=== PATIENT | female | born 1990 | race Caucasian/White ===

== ENCOUNTER → 2016-06-23 | Outpatient (CLI) | payer OTHER ==
[2016-06-23 10:57] LABS: CH 30.2; CHCM 34.5; HDW 2.64; HGB 11.3 gm/dL (11.4-16.0); MCH 29.3 pg (25.0-35.0); MCHC 33.2 g/dL (31.0-37.0); MCV 88.1 fL (80.0-100.0); Mean Platelet Volume 9.6; RBC 3.87 m/uL (3.80-5.40); RDW 12.9 % (11.5-15.5); WBC 7.4 k/uL (3.8-10.6)
--- NOTE | 2016-06-23 15:45 | US ---
EXAMINATION TYPE: US OB Call Back DATE OF EXAM: 06/23/2016 3:36 PM COMPARISON: NONE CLINICAL HISTORY: US. GESTATIONAL AGE / DATING Dates by Initial Survey Scan: (24 weeks/4 days) EDC: 10/09/16 HEART RATE: 140 bpm RHYTHM: Normal ANATOMY SEEN (second anatomic survey look): RVOT IMPRESSION: OB callback for RVOT, appears wnl as visualized
== END | disposition home or self-care (01) ==
LOC: RADUSWWP 08:49
PROVIDERS: ATTEND Obstetrics & Gynecology
DX: Z36 Encounter for antenatal screening of mother (principal); Z34.82 Encounter for supervision of other normal pregnancy, second trimester; Z3A.24 24 weeks gestation of pregnancy
CPT/HCPCS: 82950; 85027

== ENCOUNTER → 2016-08-11 | Outpatient (CLI) | payer OTHER ==
--- NOTE | 2016-08-11 11:47 | US ---
EXAMINATION TYPE: US OB anatomy transabd DATE OF EXAM: 08/11/2016 11:32 AM COMPARISON: In pacs HISTORY: Large for dates, 2, para 1 TECHNIQUE: Transabdominal (TA) EXAM MEASUREMENTS: GESTATIONAL AGE / DATING Physician Established: (32 weeks/6 days) EDC: 09/30/2016 Dates by LMP: (32 weeks/2 days) EDC: 10/04/2016 Dates by First Scan: (32 weeks/0 days) EDC: 10/06/2016 Dates by Current Scan for: (31 weeks/3 days) EDC: 10/10/2016 SURVEY IUP: Single PLACENTA: Anterior PREVIA: No previa PEDRO PABLO: 16.2 cm Normal CERVICAL LENGTH (transabdominal: norm > 3.0cm): 4.3 cm BIOMETRY PRESENTATION: Vertex BPD: 8.0 cm 32 weeks / 0 days HC: 28.9 cm 31 weeks / 6 days AC: 28.7 cm 32 weeks / 5 days FL: 6.0 cm 31 weeks / 2 days ESTIMATED WEIGHT IN GRAMS: 1904 grams ESTIMATED WEIGHT IN LBS/OZS: 4 lbs. 3 oz. WEIGHT PERCENTAGE BASED ON ESTABLISHED DATE: 20 % HC/AC: 1.01 Normal FL/AC: 20.95 Normal HEART RATE: 131 bpm RHYTHM: Normal ANATOMY SEEN (within normal limits): Four Chamber Heart Outflow tracts: LVOT Stomach Situs Nose / Lips Diaphragm Kidneys (bilateral) Bladder Cord Insert Three Vessel Cord Longitudinal Spine Transverse Spine ANATOMY NOT SEEN: Due to advanced age, 3rd trimester * Lateral Vent (< 1 cm) cm * Cisterna Magna (< 1.1 cm) cm * Nuchal Fold (< 0.6 cm) cm * Cerebellum (varies with age) cm Choroid Plexus (bilateral) Midline Falx Cavus Septi Pellucidi Outflow Tracts: RVOT Arms (bilateral) Legs (bilateral) IMPRESSION: Viable single IUP measuring 31 weeks 3 days with a heart rate of 131bpm and an estimated delivery date of 10/10/2016.
== END | disposition home or self-care (01) ==
LOC: RADUSWWP 11:00
PROVIDERS: ATTEND Obstetrics & Gynecology
DX: O36.63X0 Maternal care for excessive fetal growth, third trimester, not applicable or unspecified (principal); Z3A.31 31 weeks gestation of pregnancy
CPT/HCPCS: 76811

== ENCOUNTER 2016-10-04 06:13 | Inpatient (IN) | payer OTHER ==
[2016-10-04 06:35] VITALS: RESP 16
[2016-10-04] MEDS ORDERED: OXYTOCIN 10 UNIT/ML 1 ML VIAL IM PRN (06:53)
[2016-10-04] MEDS ORDERED: LIDOCAINE 1% (PF) 10 MG/ML (30 ML SDV) SQ PRN (06:53)
[2016-10-04] MEDS ORDERED: METHYLERGONOVINE 0.2 MG/ML 1 ML AMP IM PRN (06:53)
[2016-10-04] MEDS ORDERED: CARBOPROST TROMETHAMINE 250 MCG/ML 1 ML AMP IM PRN (06:53)
[2016-10-04] MEDS ORDERED: AMPICILLIN 2,000 MG in SODIUM CHLORIDE 0.9% 100 ML IVPB STA (06:53)
[2016-10-04] MEDS ORDERED: TERBUTALINE 1 MG/ML VIAL SQ PRN (06:53)
[2016-10-04] MEDS: LACTATED RINGERS 1,000 ML IV SCH ×2 (06:58→08:54)
[2016-10-04] MEDS ORDERED: OXYTOCIN 30 UNITS/500 ML NS 30 UNIT in SALINE 1 500ML.BAG IV SCH (07:00)
[2016-10-04 07:18] LABS: Basophils % (A) 0 %; CH 29.9; CHCM 35.3; Eosinophils # (A) 0.2 k/uL (0-0.7); Eosinophils % (A) 1 %; HCT 38.1 % (34.0-46.0); HDW 2.66; HGB 13.2 gm/dL (11.4-16.0); Large Platelets Flag Moderate; Luc # (Auto) 0.37; Luc % (Auto) 3; Lymphocytes # (A) 2.2 k/uL (1.0-4.8); Lymphocytes % (A) 19 %; MCH 29.5 pg (25.0-35.0); MCHC 34.7 g/dL (31.0-37.0); MCV 84.9 fL (80.0-100.0); Mean Platelet Volume 10.8; Monocytes # (A) 0.6 k/uL (0-1.0); Monocytes % (A) 5 %; Neutrophils # (A) 8.4 k/uL (1.3-7.7); Neutrophils % (A) 72 %; RBC 4.49 m/uL (3.80-5.40); RDW 13.3 % (11.5-15.5); WBC 11.7 k/uL (3.8-10.6); WBC (Perox) 12.25
[2016-10-04] MEDS ORDERED: SODIUM CHLORIDE 0.9% 100 ML BAG ONE (07:56)
[2016-10-04] MEDS ORDERED: fentaNYL (PF) 50 MCG/ML 5 ML AMP ONE (07:56)
[2016-10-04] MEDS ORDERED: BUPIVACAINE (PF) 0.25% 30 ML VIAL ONE (07:56)
[2016-10-04 08:24] VITALS: BMI 31.6
[2016-10-04] MEDS ORDERED: BUPIVACAINE (PF) 0.25% 25 ML, fentaNYL (PF) 200 MCG in SODIUM CHLORIDE 0.9% 71 ML EPIDURAL ONE (08:39)
[2016-10-04] MEDS: AMPICILLIN 1,000 MG in SODIUM CHLORIDE 0.9% 50 ML IVPB SCH ×2 (11:57→16:10)
[2016-10-04] MEDS ORDERED: diphenhydrAMINE 25 MG CAP PO PRN (15:21)
[2016-10-04] MEDS ORDERED: BENZOCAINE/MENTHOL SPRAY 1 GM/SPRAY AEROSOL TOPICAL PRN (15:21)
[2016-10-04] MEDS ORDERED: diphenhydrAMINE 50 MG/ML 1 ML VIAL IVP PRN ×2 (15:21)
[2016-10-04] MEDS ORDERED: IBUPROFEN 600 MG TAB PO PRN (15:21)
[2016-10-04] MEDS ORDERED: ACETAMINOPHEN TAB 325 MG TAB PO PRN (15:21)
[2016-10-04] MEDS ORDERED: diphenhydrAMINE 50 MG CAP PO PRN (15:21)
[2016-10-04] MEDS ORDERED: Acetaminophen-Codeine 300-30mg TAB PO PRN ×2 (15:21)
[2016-10-04] MEDS ORDERED: SIMETHICONE 80 MG CHEWABLE PO PRN (15:21)
[2016-10-04] MEDS ORDERED: HYDROCORTISONE 2.5% RECTAL CREAM 30 GM TUBE RECTAL PRN (15:21)
[2016-10-04] MEDS ORDERED: WITCH HAZEL 1 EACH MED..PAD TOPICAL PRN (15:21)
[2016-10-04] MEDS ORDERED: LANOLIN CREAM 5 GM TUBE TOPICAL PRN (15:21)
[2016-10-04] MEDS ORDERED: ZOLPIDEM 5 MG TAB PO PRN (15:21)
--- NOTE | 2016-10-04 15:23 | P.HPOB ---
History of Present Illness H&P Date: 10/04/16 Chief Complaint: IUP term: SROM Patient is a 25-year-old at 40 weeks gestation arrives complaining of spontaneous rupture membranes. Patient reports that she had rupture membranes at approximately 5:30 this morning. Clear fluid is noted. History of groupie strep positive and therefore groupie strep prophylaxis has been initiated. Her course otherwise has been unremarkable. She is feeling well at this time. She was dilated to 37 years when I evaluated her heart tones 140s and reactive. Vital signs are stable and afebrile. Heart regular, lungs clear , extremities without pain. Abdomen is otherwise soft and nontender. Gravid uterus is noted. Assessment intrauterine at term. Plan expect spontaneous vaginal delivery. Plan is for epidural for pain control. Pertinent labs do include A+ blood type Rh generally was negative rubella was immune hepatitis B surface antigen and RPR were both negative. 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 Past Anesthesia/Blood Transfusion Reactions: No Reported Reaction Past Psychological History: No Psychological Hx Reported Smoking Status: Former smoker Past Alcohol Use History: Occasional Past Drug Use History: None Reported - Past Family History Father Family Medical History: Diabetes Mellitus Medications and Allergies Home Medications Medication Instructions Recorded Confirmed Type No Known Home Medications [No 02/13/16 10/04/16 History Known Home Medications] Allergies Allergy/AdvReac Type Severity Reaction Status Date / Time venom-honey bee Allergy Swelling Verified 02/13/16 19:54 [bee venom (honey bee)] Exam Osteopathic Statement: *. No significant issues noted on an osteopathic structural exam other than those noted in the History and Physical/Consult. - Vital Signs Vital signs: Vital Signs Temp Pulse Resp BP Pulse Ox 10/04/16 08:19 88 16 131/88 10/04/16 06:27 97.6 F 81 16 127/88 98 Intake and Output 10/04/16 10/04/16 10/04/16 06:59 14:59 22:59 Other: # Voids 1 Weight 78.471 kg 78.471 kg Patient Weight 10/05/16 06:59 Weight 78.471 kg Results Result Diagrams: 10/04/16 06:56 Abnormal Lab Results - Last 24 Hours (Table) 10/04/16 Range/Units 06:56 WBC 11.7 H (3.8-10.6) k/uL Neutrophils # 8.4 H (1.3-7.7) k/uL
--- NOTE | 2016-10-04 15:26 | P.PROBDLV ---
Vaginal Delivery Note - . Vaginal Delivery Note: Patient progressed complete and pushed with spontaneous vaginal delivery of a viable female over an intact perineum. Falling deliver the head was noted and retraction of the head onto the perineum indicating likely shoulder dystocia. Patient was immediately placed in steep Nahed position and the head of the bed was lowered. Head was noted to be left occiput anterior position. Despite Nahed position anterior shoulder would not release from behind the pubic bone. At this point I did reach to the posterior shoulder and was able to grasp onto the axilla using a counterclockwise motion and with nursing doing suprapubic pressure at an angle towards the patient's right side. We were able to clear the anterior shoulder without difficulty in less than 20 seconds. Once anterior shoulder was cleared baby was delivered fully without difficulty mouth nares were bulb suctioned and baby was placed on mother 's abdomen where the umbilical cord was clamped cut usual fashion an spontaneous cry is noted. scores and weight are both pending at this time but both mother and baby appear stable and baby is moving all extremities without difficulty. Placenta was delivered intact without difficulty and Pitocin was also added to the IV.
[2016-10-04 18:00] VITALS: BP 145/84; PULSE 105; TEMP 98.1
[2016-10-04] MEDS ORDERED: SENNOSIDES-DOCUSATE SODIUM 1 EACH TAB PO SCH (20:00)
--- NOTE | 2016-10-19 09:31 | P.DS ---
Providers Date of admission: 10/04/16 06:40 Expected date of discharge: 10/04/16 Attending physician: Ej Arboleda [facility] Course: Patient's baby encountered a on known cardiac anomaly. Baby was therefore transferred to [facility] for further evaluation and Aracely was discharged the same day due to same. At the time discharge she was stable. Her vital signs were stable and she was afebrile. Her heart was regular her lungs were clear and her abdomen was soft. Lochia had been reported to be light at that point. She will follow up with me in 6 weeks. All questions were answered for her prior to discharge but again this was an emergency discharge due to baby being transferred to [facility]. Patient Condition at Discharge: Good Plan - Discharge Summary New Discharge Prescriptions: Acetaminophen-Codeine 300-30mg [Tylenol #3] 1 tab PO Q4H PRN #30 tablet PRN Reason: Pain Ibuprofen [Motrin] 600 mg PO Q6HR PRN #30 tab PRN Reason: Pain Discharge Medication List Acetaminophen-Codeine 300-30mg [Tylenol #3] 1 tab PO Q4H PRN #30 tablet [Rx] Ibuprofen [Motrin] 600 mg PO Q6HR PRN #30 tab 10/04/16 [Rx] Follow up Appointment(s)/Referral(s): Ej Arboleda DO [Doctor of Osteopathic Medicine] - 6 Weeks Activity/Diet/Wound Care/Special Instructions: Heavy lifting, limit stairs and driving, and Ellik rest. If any high temperatures, heavy bleeding, or severe pain call my office Discharge Disposition: HOME SELF-CARE
== END 2016-10-04 19:57 | disposition home or self-care (01) | DRG 775 ==
LOC: FBPOP 06:13 → 4FBP 06:40
PROVIDERS: ADMIT Obstetrics & Gynecology; ATTEND Obstetrics & Gynecology
PROC: 10E0XZZ Delivery of Products of Conception, External Approach (ICD-10-PCS; principal; 2016-10-04)
PROC: 3E0S3NZ Introduction of Analgesics, Hypnotics, Sedatives into Epidural Space, Percutaneous Approach (ICD-10-PCS; 2016-10-04)
DX: O66.0 Obstructed labor due to shoulder dystocia (principal); O99.824 Streptococcus B carrier state complicating childbirth; Z3A.40 40 weeks gestation of pregnancy; Z37.0 Single live birth; Z87.891 Personal history of nicotine dependence; Z83.3 Family history of diabetes mellitus; Z91.030 Bee allergy status
CPT/HCPCS: 59025; 84112; 85025; 88307; 99213

== ENCOUNTER 2018-01-02 07:35 | Emergency (ER) | payer OTHER ==
[2018-01-02 07:38] VITALS: BP 138/94; PULSE 75; RESP 20; TEMP 98
--- NOTE | 2018-01-02 08:07 | ED ---
General Adult HPI - General Chief complaint: Dental/Oral Stated complaint: Dental Pain Time Seen by Provider: 01/02/18 07:35 Source: patient, RN notes reviewed Mode of arrival: ambulatory Limitations: no limitations - History of Present Illness Initial comments: This is a 27-year-old female presents emergency Department complaining of right upper molar pain. Patient states his been ongoing for 2 weeks. Patient states she can see a hole in the tooth but has not been able to get to a dentist. Patient states the pain is gotten progressively worse. Patient denies any swelling or drainage. Patient denies any fever. Patient denies any other symptoms at this time. - Related Data Previous Rx's Medication Instructions Recorded Acetaminophen-Codeine 300-30mg 1 tab PO Q4H PRN #30 tablet 10/04/16 [Tylenol #3] Ibuprofen [Motrin] 600 mg PO Q6HR PRN #30 tab 10/04/16 Amoxicillin 500 mg PO Q8H #30 capsule 01/02/18 Ibuprofen [Motrin] 600 mg PO Q6HR PRN #20 tab 01/02/18 Allergies Allergy/AdvReac Type Severity Reaction Status Date / Time venom-honey bee Allergy Swelling Verified 01/02/18 07:38 [bee venom (honey bee)] Review of Systems ROS Statement: Those systems with pertinent positive or pertinent negative responses have been documented in the HPI. ROS Other: All systems not noted in ROS Statement are negative. 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 Patient is in mild distress. EYES Patient's pupils are equal and round. Extraocular motion is intact MOUTH Patient's right upper molar has a cavity and is somewhat tender to palpation. There is no fluctuance around the tooth there is no redness of the gum. There is no swelling of the face. SKIN Unremarkable NEURO The patient is alert and oriented 3 PYSCH Patient has normal interpersonal interactions. MUSCULOSKELETAL All 4 times and full range of motion Limitations: no limitations Course Vital Signs 01/02/18 07:36 Temperature 98.0 F Pulse Rate 75 Respiratory 20 Rate Blood Pressure 138/94 O2 Sat by Pulse 100 Oximetry Disposition Clinical Impression: Dental caries, Toothache Disposition: HOME SELF-CARE Condition: Good Instructions: Dental Caries (ED), Toothache (ED) Prescriptions: Amoxicillin 500 mg PO Q8H #30 capsule Ibuprofen [Motrin] 600 mg PO Q6HR PRN #20 tab PRN Reason: For pain Is patient prescribed a controlled substance at d/c from ED?: No Referrals: None,Stated [Primary Care Provider] - 1-2 days Time of Disposition: 08:06
== END 2018-01-02 08:10 | disposition home or self-care (01) ==
LOC: EC 07:35
DX: K02.9 Dental caries, unspecified (principal); F17.200 Nicotine dependence, unspecified, uncomplicated; Z91.030 Bee allergy status
CPT/HCPCS: 99282

== ENCOUNTER 2018-04-11 17:14 | Emergency (ER) | payer OTHER ==
[2018-04-11 17:18] VITALS: BP 121/79; PULSE 94; RESP 18; TEMP 98.4
--- NOTE | 2018-04-11 20:07 | ED ---
General Adult HPI - General Chief complaint: ENT Stated complaint: throat pain Time Seen by Provider: 04/11/18 17:25 Source: patient, RN notes reviewed Mode of arrival: ambulatory Limitations: no limitations - History of Present Illness Initial comments: 27-year-old female presents to the emergency department for a chief complaint of sore throat 2 days. Patient states it is painful to swallow but denies any difficulty swallowing solids or liquids. Patient denies fevers or chills. Patient denies cough or congestion. She denies any stiff neck. Patient has no other complaints at this time including shortness of breath, chest pain, abdominal pain, nausea or vomiting, headache, or visual changes. - Related Data Previous Rx's Medication Instructions Recorded Acetaminophen-Codeine 300-30mg 1 tab PO Q4H PRN #30 tablet 10/04/16 [Tylenol #3] Ibuprofen [Motrin] 600 mg PO Q6HR PRN #30 tab 10/04/16 Amoxicillin 500 mg PO Q8H #30 capsule 01/02/18 Ibuprofen [Motrin] 600 mg PO Q6HR PRN #20 tab 01/02/18 Allergies Allergy/AdvReac Type Severity Reaction Status Date / Time venom-honey bee Allergy Swelling Verified 04/11/18 17:18 [bee venom (honey bee)] Review of Systems ROS Statement: Those systems with pertinent positive or pertinent negative responses have been documented in the HPI. ROS Other: All systems not noted in ROS Statement are negative. 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 Absent: scleral icterus, conjunctival injection, periorbital swelling ENT exam: Present: mucous membranes moist, TM's normal bilaterally, normal external ear exam. Absent: normal oropharynx (Patient has tonsillar exudates bilaterally. Uvula is midline. No evidence of peritonsillar abscess.) Neck exam: Present: normal inspection, full ROM. Absent: tenderness, meningismus, lymphadenopathy Respiratory exam: Present: normal lung sounds bilaterally. Absent: respiratory distress, wheezes, rales, rhonchi, stridor Cardiovascular Exam: Present: regular rate, normal rhythm, normal heart sounds. Absent: systolic murmur, diastolic murmur, rubs, gallop, clicks GI/Abdominal exam: Present: soft, normal bowel sounds. Absent: distended, tenderness (No left upper quadrant tenderness), guarding, rebound, rigid Neurological exam: Present: alert, oriented X3, CN II-XII intact Psychiatric exam: Present: normal affect, normal mood Course Vital Signs 04/11/18 17:16 Temperature 98.4 F Pulse Rate 94 Respiratory 18 Rate Blood Pressure 121/79 O2 Sat by Pulse 100 Oximetry Medical Decision Making - Medical Decision Making 27 year old female presents to the emergency department for a chief of sore throat 2 days. Patient denies fevers or chills, difficult to swallowing, stiff neck. On exam patient does have mild tonsillar exudates noted bilaterally. Uvula is midline. No evidence of peritonsillar abscess. Strep was initially negative. I discussed this with patient and did offer to do a test for mono. Patient states that she would like to have this done and was informed it would be another hour. All strep, heterophile, and flu were negative. I did discuss with patient following up for culture results in 2 days. Discussed following up with primary care and returning if she has any worsening symptoms. - Lab Data Lab Results 04/11/18 04/11/18 04/11/18 Range/Units 17:35 18:48 18:48 Heterophile Antibody Negative (Negative) Influenza Type A RNA Not Detected (Not Detectd) Influenza Type B (PCR) Not Detected (Not Detectd) Group A Strep Rapid Negative (Negative) Disposition Clinical Impression: Sore throat Disposition: HOME SELF-CARE Condition: Good Instructions: Strep Throat (ED) Additional Instructions: Please take Motrin and Tylenol for pain. Please follow-up with culture results in 2 days. Follow-up with primary care in 1-2 days. Return to the emergency department if you have any worsening symptoms. Is patient prescribed a controlled substance at d/c from ED?: No Referrals: Sneha Slade MD [STAFF PHYSICIAN] - 1-2 days Time of Disposition: 20:07
== END 2018-04-11 20:12 | disposition home or self-care (01) ==
LOC: EC 17:14
DX: J02.9 Acute pharyngitis, unspecified (principal); F17.200 Nicotine dependence, unspecified, uncomplicated; Z91.030 Bee allergy status
CPT/HCPCS: 36415; 86308; 87081; 87430; 87502; 99283

== ENCOUNTER 2018-05-13 18:11 | Emergency (ER) | payer OTHER ==
--- NOTE | 2018-05-13 18:38 | ED ---
General Adult HPI - General Chief complaint: Vaginal Bleeding Stated complaint: early /spotting Source: patient Mode of arrival: ambulatory Limitations: no limitations - History of Present Illness Initial comments: Dictation was produced using [employer] dictation software. please excuse any grammatical, word or spelling errors. Chief Complaint: 27-year-old female presents with vaginal bleeding. History of Present Illness: 27-year-old female with no significant past medical history presents with vaginal spotting. Patient was at work today when she noted some spotting. Patient's last measured. Last menstrual was approximately 6 weeks ago. Patient is was confirmed by 2 positive urine test and missed period. Patient has a follow-up with [facility]. She is not on vitamins. Patient denies any pelvic pain. The ROS documented in this emergency department record has been reviewed and confirmed by me. Those systems with pertinent positive or negative responses have been documented in the HPI. All other systems are other negative and/or noncontributory. - Related Data Previous Rx's Medication Instructions Recorded Cephalexin [Keflex] 500 mg PO Q6HR 5 Days #20 cap 05/13/18 Pnv No.95/Ferrous Fum/Folic AC 1 each PO QAM #60 tablet 05/13/18 [ Multivitamin Tablet] Allergies Allergy/AdvReac Type Severity Reaction Status Date / Time venom-honey bee Allergy Swelling Verified 05/13/18 18:29 [bee venom (honey bee)] Review of Systems ROS Statement: Those systems with pertinent positive or pertinent negative responses have been documented in the HPI. ROS Other: All systems not noted in ROS Statement are negative. 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 Cardiovascular: Heart regular rate and rhythm, S1&S2 audible, no murmurs, rubs or gallops Chest: Lungs clear to auscultation bilaterally, no rhonchi, no wheeze, no rales Abdomen: Bowel sounds present, abdomen soft, non-tender, non-distended, no organomegaly Musculoskeletal: Pulses present and equal in all extremities, no peripheral edema Motor: Power 5/5 bilaterally, no focal deficits noted Neurological: CN II-XII grossly intact, no focal motor or sensory deficits noted Skin: Intact with no visualized rashes Psych: Normal affect and mood Limitations: no limitations Course Vital Signs 05/13/18 18:20 Temperature 97.9 F Pulse Rate 77 Respiratory 16 Rate Blood Pressure 119/83 O2 Sat by Pulse 100 Oximetry Medical Decision Making - Medical Decision Making ED course: 27-year-old female presents with vaginal bleeding and . Vital signs upon arrival are within acceptable limits.Abdomen evaluation obtained. Mild leukocytosis of 11.6, metabolic panel unremarkable. Analysis shows white blood cells. Beta Quant is 98,000. ultrasound shows intrauterine with gestational age of 6 weeks and 1 day. Patient has normal heart rate. Estimated date of delivery is 01/05/2019. Discussed with patient that I would recommend pelvic exam for the for evaluation. She refuses pelvic examination. Patient given referral to [facility]. Patient given prescriptions for Keflex for possible urinary tract infection. - Lab Data Result diagrams: 05/13/18 18:44 05/13/18 18:44 Lab Results 05/13/18 05/13/18 05/13/18 Range/Units 18:44 18:44 18:44 WBC 11.6 H (3.8-10.6) k/uL RBC 4.34 (3.80-5.40) m/uL Hgb 12.3 (11.4-16.0) gm/dL Hct 36.8 (34.0-46.0) % MCV 84.9 (80.0-100.0) fL MCH 28.3 (25.0-35.0) pg MCHC 33.3 (31.0-37.0) g/dL RDW 12.6 (11.5-15.5) % Plt Count 177 (150-450) k/uL Neutrophils % 72 % Lymphocytes % 19 % Monocytes % 5 % Eosinophils % 2 % Basophils % 0 % Neutrophils # 8.3 H (1.3-7.7) k/uL Lymphocytes # 2.2 (1.0-4.8) k/uL Monocytes # 0.6 (0-1.0) k/uL Eosinophils # 0.2 (0-0.7) k/uL Basophils # 0.0 (0-0.2) k/uL Sodium 136 L (137-145) mmol/L Potassium 4.1 (3.5-5.1) mmol/L Chloride 101 (98-107) mmol/L Carbon Dioxide 26 (22-30) mmol/L Anion Gap 9 mmol/L BUN 16 (7-17) mg/dL Creatinine 0.72 (0.52-1.04) mg/dL Est GFR (CKD-EPI)AfAm >90 (>60 ml/min/1.73 sqM) Est GFR (CKD-EPI)NonAf >90 (>60 ml/min/1.73 sqM) Glucose 97 (74-99) mg/dL Calcium 9.4 (8.4-10.2) mg/dL HCG, Quant 90159.7 mIU/mL Urine Color Urine Appearance (Clear) Urine pH (5.0-8.0) Ur Specific [place] (1.001-1.035) Urine Protein (Negative) Urine Glucose (UA) (Negative) Urine Ketones (Negative) Urine Blood (Negative) Urine Nitrite (Negative) Urine Bilirubin (Negative) Urine Urobilinogen (<2.0) mg/dL Ur Leukocyte Esterase (Negative) Urine RBC (0-5) /hpf Urine WBC (0-5) /hpf Ur Squamous Epith Cells (0-4) /hpf Urine Bacteria (None) /hpf Urine Mucus (None) /hpf Blood Type A Positive Blood Type Recheck No Antibody Screen NEGATIVE Spec Expiration Date 05/16/2018 - 234305/13/18 Range/Units 18:44 WBC (3.8-10.6) k/uL RBC (3.80-5.40) m/uL Hgb (11.4-16.0) gm/dL Hct (34.0-46.0) % MCV (80.0-100.0) fL MCH (25.0-35.0) pg MCHC (31.0-37.0) g/dL RDW (11.5-15.5) % Plt Count (150-450) k/uL Neutrophils % % Lymphocytes % % Monocytes % % Eosinophils % % Basophils % % Neutrophils # (1.3-7.7) k/uL Lymphocytes # (1.0-4.8) k/uL Monocytes # (0-1.0) k/uL Eosinophils # (0-0.7) k/uL Basophils # (0-0.2) k/uL Sodium (137-145) mmol/L Potassium (3.5-5.1) mmol/L Chloride (98-107) mmol/L Carbon Dioxide (22-30) mmol/L Anion Gap mmol/L BUN (7-17) mg/dL Creatinine (0.52-1.04) mg/dL Est GFR (CKD-EPI)AfAm (>60 ml/min/1.73 sqM) Est GFR (CKD-EPI)NonAf (>60 ml/min/1.73 sqM) Glucose (74-99) mg/dL Calcium (8.4-10.2) mg/dL HCG, Quant mIU/mL Urine Color Yellow Urine Appearance Cloudy H (Clear) Urine pH 7.0 (5.0-8.0) Ur Specific [place] 1.017 (1.001-1.035) Urine Protein Negative (Negative) Urine Glucose (UA) Negative (Negative) Urine Ketones Negative (Negative) Urine Blood Small H (Negative) Urine Nitrite Negative (Negative) Urine Bilirubin Negative (Negative) Urine Urobilinogen <2.0 (<2.0) mg/dL Ur Leukocyte Esterase Large H (Negative) Urine RBC 3 (0-5) /hpf Urine WBC 6 H (0-5) /hpf Ur Squamous Epith Cells 14 H (0-4) /hpf Urine Bacteria Rare H (None) /hpf Urine Mucus Rare H (None) /hpf Blood Type Blood Type Recheck Antibody Screen Spec Expiration Date Disposition Clinical Impression: Pelvic pain Disposition: HOME SELF-CARE Condition: Good Instructions: Pelvic Pain in Women (ED) Prescriptions: Cephalexin [Keflex] 500 mg PO Q6HR 5 Days #20 cap Pnv No.95/Ferrous Fum/Folic AC [ Multivitamin Tablet] 1 each PO QAM #60 tablet Is patient prescribed a controlled substance at d/c from ED?: No Referrals: None,Stated [Primary Care Provider] - 1-2 days Time of Disposition: 21:13
[2018-05-13 19:07] LABS: Basophils % (A) 0 %; Eosinophils # (A) 0.2 k/uL (0-0.7); Eosinophils % (A) 2 %; HCT 36.8 % (34.0-46.0); HGB 12.3 gm/dL (11.4-16.0); Lymphocytes # (A) 2.2 k/uL (1.0-4.8); Lymphocytes % (A) 19 %; MCH 28.3 pg (25.0-35.0); MCHC 33.3 g/dL (31.0-37.0); MCV 84.9 fL (80.0-100.0); Mean Platelet Volume 8.7; Monocytes # (A) 0.6 k/uL (0-1.0); Monocytes % (A) 5 %; Neutrophils # (A) 8.3 k/uL (1.3-7.7); Neutrophils % (A) 72 %; Platelet Count 177 k/uL (150-450); RBC 4.34 m/uL (3.80-5.40); RDW 12.6 % (11.5-15.5); WBC 11.6 k/uL (3.8-10.6)
[2018-05-13 19:13] LABS: Appearance,Urine Cloudy (Clear); Bacteria,Urine Rare /hpf; Bilirubin,Urine Negative (Negative); Blood,Urine Small (Negative); Color,Urine Yellow; Glucose,Urine (UA) Negative (Negative); Ketones,Urine Negative (Negative); Leukocyte Esterase,Urine Large (Negative); Mucus,Urine Rare /hpf; Nitrite,Urine Negative (Negative); Protein,Urine Negative (Negative); RBC,Urine 3 /hpf (0-5); Specific Gravity,Urine 1.017 (1.001-1.035); Squamous Epithelial Cell,Urine 14 /hpf (0-4); Urobilinogen,Urine <2.0 mg/dL (<2.0); WBC,Urine 6 /hpf (0-5)
[2018-05-13 19:17] LABS: Anion Gap 9 mmol/L; Blood Urea Nitrogen 16 mg/dL (7-17); Calcium 9.4 mg/dL (8.4-10.2); Carbon Dioxide 26 mmol/L (22-30); Chloride 101 mmol/L (98-107); Glucose 97 mg/dL (74-99); Potassium 4.1 mmol/L (3.5-5.1); Sodium 136 mmol/L (137-145)
--- NOTE | 2018-05-13 20:38 | US ---
EXAMINATION TYPE: Transabdominal DATE OF EXAM: 09/11/17 COMPARISON: NONE CLINICAL HISTORY: Pain. Cramping and spotting. EXAM PERFORMED: Transabdominal (TA) EXAM MEASUREMENTS: GESTATIONAL AGE / DATING Physician Established: Not yet established Dates by LMP: (6 weeks/4 days) EDC: 01/02/2019 Dates by First Scan: No previous this is first scan Dates by Current Scan for: ( 6 weeks/1 days) EDC: 01/05/2019 MATERNAL ANATOMY Uterus: 9.0 x 5.1 x 5.8 cm Right Ovary: 2.6 x 1.9 x 1.9 cm Left Ovary: 2.2 x 1.4 x 1.6 cm Post CDS / Adnexa: wnl Presence of free fluid: no Presence of corpus luteal cyst: no Presence of subchorionic bleed: no GESTATION / SURVEY CRL: 0.45cm (6 weeks/1 days) Yolk Sac (normal less than 6mm): 2mm Heart Rate: 157 bpm Rhythm: Normal IUP: Viable IUP Beta HcG (if available): Not available at this time IMPRESSION: The ultrasound gestational age is 6 weeks and 1 day. No complicating process seen. The MIGUEL is 01/06/20 19.
[2018-05-13 20:41] LABS: HCG,Quantitative Serum 98460.7 mIU/mL
[2018-05-13 21:33] VITALS: BP 123/79; PULSE 74; RESP 17; TEMP 98
== END 2018-05-13 21:24 | disposition home or self-care (01) ==
LOC: EC 18:11
DX: O99.89 Other specified diseases and conditions complicating pregnancy, childbirth and the puerperium (principal); R10.2 Pelvic and perineal pain; O99.111 Other diseases of the blood and blood-forming organs and certain disorders involving the immune mechanism complicating pregnancy, first trimester; D72.829 Elevated white blood cell count, unspecified; R82.998 Other abnormal findings in urine; O20.9 Hemorrhage in early pregnancy, unspecified; O99.331 Smoking (tobacco) complicating pregnancy, first trimester; F17.200 Nicotine dependence, unspecified, uncomplicated; Z91.030 Bee allergy status; Z3A.01 Less than 8 weeks gestation of pregnancy
CPT/HCPCS: 36415; 76801; 80048; 81001; 84702; 85025; 86850; 86900; 86901; 87086; 99284

== ENCOUNTER 2018-12-21 21:14 | Outpatient (CLI) | payer OTHER ==
[2018-12-21 22:18] VITALS: BP 125/86; PULSE 107; RESP 15; TEMP 97.4
[2018-12-21 23:01] LABS: Basophils # (A) 0.1 k/uL (0-0.2); Basophils % (A) 1 %; Eosinophils # (A) 0.1 k/uL (0-0.7); Eosinophils % (A) 1 %; HGB 11.4 gm/dL (11.4-16.0); Lymphocytes # (A) 1.6 k/uL (1.0-4.8); Lymphocytes % (A) 15 %; MCH 28.2 pg (25.0-35.0); MCHC 33.5 g/dL (31.0-37.0); Mean Platelet Volume 9.6; Monocytes # (A) 0.5 k/uL (0-1.0); Monocytes % (A) 5 %; Neutrophils # (A) 7.9 k/uL (1.3-7.7); Neutrophils % (A) 75 %; Platelet Count 154 k/uL (150-450); RBC 4.05 m/uL (3.80-5.40); RDW 14.1 % (11.5-15.5); WBC 10.5 k/uL (3.8-10.6)
[2018-12-21 23:04] LABS: ALT 162 U/L (9-52); AST 93 U/L (14-36); African American GFR (CKD) >90 (>60 ml/min/1.73 sqM); Anion Gap 9 mmol/L; Blood Urea Nitrogen 7 mg/dL (7-17); Carbon Dioxide 21 mmol/L (22-30); Chloride 107 mmol/L (98-107); Glucose 104 mg/dL (74-99); Potassium 3.5 mmol/L (3.5-5.1); Sodium 137 mmol/L (137-145)
--- NOTE | 2019-01-26 11:21 | P.MSEPDOC ---
Presenting Problems - Arrival Data Date of Arrival on Unit: 12/21/18 Time of Arrival on Unit: 21:14 Mode of Transport: Ambulatory - Complaint OB-Reason for Admission/Chief Complaint: Pain Comment: Pt complains of RUQ pain that started 2 days ago and has gotten worse. Rates it an 01/18 Medical History - Information : 3 Para: 2 Term: 2 : 0 Abortions: Spontaneous or Elective: 0 Number of Living Children: 2 - Gestational Age Gestational Age by MIGUEL (wks/days): 38 Weeks and 2 Days Review of Systems - Review of Systems Constitutional: No problems Breast: No problems ENT: No problems Cardiovascular: No problems Respiratory: No problems Gastrointestinal: No problems Genitourinary: No problems Musculoskeletal: No problems Neurological: No problems Skin: No problems Vital Signs - Temperature Temperature: 97.4 F Temperature Source: Temporal Artery Scan - Pulse Pulse Oximetery Pulse Rate: 107 Pulse Assessment Method: Pulse Oximetry - Respirations Respiratory Rate: 15 Oxygen Delivery Method: Room Air O2 Sat by Pulse Oximetry: 98 - Blood Pressure Right Arm Blood Pressure: 125/86 Blood Pressure Mean: 99 Blood Pressure Source: Automatic Cuff Medical Screen Scoring (Pre) - Cervical Exam Dilation: Exam Deferred Effacement: Exam Deferred Membranes: Intact - Uterine Contractions Frequency: > or = 36 weeks =2 Duration: N/A Intensity: N/A - Maternal Vital Signs Maternal Temperature: N/A Maternal Blood Pressure: N/A Signs of Preeclampsia: Epigastric Pain = 1 Maternal Respirations: N/A - Maternal Trauma Maternal Trauma: N/A - Assessment - Baby A Baseline FHR: 145 Heart Rate - NICHD Category: Category I (Normal) = 0 NST: Reactive Position: N/A - Total Score - Baby A Total Score - Baby A: 3 - Total Score - Baby B Total Score - Baby B: 3 - Total Score - Baby C Total Score - Baby C: 3 - Level of Risk - Baby A Level of Risk - Baby A: Low (0-5) - Level of Risk - Baby B Level of Risk - Baby B: Low (0-5) - Level of Risk - Baby C Level of Risk - Baby C: Low (0-5) - Pain Assessment Pain Location and Character: Right, Upper, Abdomen Pain Scale Used: Numeric (1 - 10) Pain Intensity: 8 Pain Management Goal: 2 Pain Description: *Acute, Stabbing Pain Radiation Location: none Pain Frequency: Constant Pain Duration: 2 Pain Duration Units: Days Pain Behavior: None Exhibited Pain Aggravating Factors: None Physician Notification (Pre) - Physician Notified Physician Notified Date: 12/21/18 Physician Notified Time: 21:50 Physician/Practitioner Notifed:: Dr Nagy New Order Received: Yes - Notification Comment Comment: Orders to obtain BMP, CBC, AST, ALT and call with results Medical Screen Scoring (Post) - Cervical Exam Dilation: 4-7 cm = 2 Membranes: Intact - Uterine Contractions Frequency: > 5 minutes apart = 1 Duration: N/A Intensity: N/A - Maternal Vital Signs Maternal Temperature: N/A Maternal Blood Pressure: N/A Signs of Preeclampsia: Epigastric Pain = 1 Maternal Respirations: N/A - Maternal Trauma Maternal Trauma: N/A - Assessment - Baby A Heart Rate: 135 Heart Rate - NICHD Category: Category I (Normal) = 0 NST: Reactive Position: N/A Station: N/A - Total Score Total Score - Baby A: 4 Total Score - Baby B: 4 Total Score - Baby C: 4 - Post Treatment Level of Risk Post Treatment Level of Risk - Baby A: Low (0-5) Post Treatment Level of Risk - Baby B: Low (0-5) Post Treatment Level of Risk - Baby C: Low (0-5) Disposition - Disposition OB Disposition: Discharge to home Discharge Date: 12/22/18 Discharge Time: 00:00 I agree with the RN Medical Screening Exam: No Risk & Benefit of care provided described in d/c instruction: No Diagnosis: PAIN, UNSPECIFIED
== END 2018-12-22 | disposition home or self-care (01) ==
LOC: FBPOP 21:14
PROVIDERS: ATTEND Obstetrics & Gynecology
DX: O99.89 Other specified diseases and conditions complicating pregnancy, childbirth and the puerperium (principal); R52 Pain, unspecified; Z3A.38 38 weeks gestation of pregnancy
CPT/HCPCS: 59025; 80048; 84450; 84460; 85025; 99215

== ENCOUNTER 2018-12-26 06:00 | Inpatient (IN) | payer OTHER ==
[2018-12-26] MEDS ORDERED: TERBUTALINE 1 MG/ML VIAL SQ PRN (06:25)
[2018-12-26] MEDS ORDERED: LIDOCAINE 0.5% (PF) 5 MG/ML (50 ML SDV) SQ PRN (06:25)
[2018-12-26] MEDS ORDERED: METHYLERGONOVINE 0.2 MG/ML 1 ML AMP IM PRN (06:25)
[2018-12-26] MEDS ORDERED: OXYTOCIN 10 UNIT/ML 1 ML VIAL IM PRN (06:25)
[2018-12-26] MEDS ORDERED: CARBOPROST TROMETHAMINE 250 MCG/ML 1 ML AMP IM PRN (06:25)
[2018-12-26] MEDS ORDERED: OXYTOCIN 30 UNITS/500 ML NS 30 UNIT in SALINE 1 500ML.BAG IV SCH (06:30)
[2018-12-26] MEDS: LACTATED RINGERS 1,000 ML IV SCH ×2 (06:34→07:59)
[2018-12-26 06:44] LABS: Basophils # (A) 0.1 k/uL (0-0.2); Basophils % (A) 1 %; Eosinophils # (A) 0.1 k/uL (0-0.7); Eosinophils % (A) 1 %; HCT 34.5 % (34.0-46.0); HGB 11.9 gm/dL (11.4-16.0); Lymphocytes # (A) 1.9 k/uL (1.0-4.8); Lymphocytes % (A) 20 %; MCHC 34.6 g/dL (31.0-37.0); Mean Platelet Volume 9.4; Monocytes # (A) 0.4 k/uL (0-1.0); Monocytes % (A) 4 %; Neutrophils # (A) 6.6 k/uL (1.3-7.7); Neutrophils % (A) 70 %; Platelet Count 180 k/uL (150-450); RBC 4.11 m/uL (3.80-5.40); RDW 14.2 % (11.5-15.5); WBC 9.4 k/uL (3.8-10.6)
[2018-12-26 07:11] VITALS: BMI 28.9
--- NOTE | 2018-12-26 07:39 | P.HPOB ---
History of Present Illness H&P Date: 12/26/18 Chief Complaint: Here for induction of labor with advanced cervical dilatation This is a 28-year-old white female 3 para 2002 EDC 01/02/2019 at 39 weeks gestation. Patient presents today for induction with advanced cervical dilatation, cervix was 6 cm yesterday in the office. Fetus is been active throughout the . She is admitting to mild irregular uterine contractions. She denies fluid leakage or vaginal bleeding. history is significant for mild cholestasis of . Blood type is A+, rubella status immune. Pap smear, gonorrhea and chlamydia cultures, VDRL testing, urine culture, hepatitis B surface antigen, HIV testing, group B strep cultures all negative. One-hour Glucola 126. Past medical history is significant for a bone tumor, benign origin. Past surgical history bone marrow donation, bone tumor removed. Current medications vitamins daily. ALLERGIES none known. Family history significant for diabetes as well as congenital heart defect. Obstetric history is significant for 2 prior vaginal deliveries, full-term, unremarkable. Social history patient is single, she is a former smoker. She denies alcohol or drug use. On exam this is a pleasant white female, 5 foot 2 inches, 158 pounds, vital signs are stable and she is afebrile. Admitting blood pressure 119/75. The general physical exam is within normal limits, however the skin does show evidence of scratching secondary to pruritus of cholestasis. Cervix is 7 cm dilated, 70% effaced, -2 station, vertex presentation, anterior, soft. Artifici al amniorrhexis reveals thin meconium-stained fluid. heart rate is consistent with reactive NST. Impression: 39 week intrauterine , advanced cervical dilatation, mild cholestasis of . Plan: Oxytocin per hospital protocol. Epidural has been requested at this time. Continue close maternal and surveillance. Anticipate normal spontaneous vaginal delivery. Review of Systems Constitutional: Reports as per HPI 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 Past Anesthesia/Blood Transfusion Reactions: No Reported Reaction Past Psychological History: No Psychological Hx Reported Smoking Status: Former smoker Past Alcohol Use History: Occasional Past Drug Use History: None Reported - Past Family History Father Family Medical History: Diabetes Mellitus Medications and Allergies Home Medications Medication Instructions Recorded Confirmed Type Pnv No.95/Ferrous Fum/Folic AC 1 each PO QAM #60 tablet 05/13/18 12/26/18 Rx [ Multivitamin Tablet] Allergies Allergy/AdvReac Type Severity Reaction Status Date / Time venom-honey bee Allergy Swelling Verified 12/21/18 21:23 [bee venom (honey bee)] Exam Intake and Output 12/25/18 12/26/18 12/26/18 22:59 06:59 14:59 Other: Weight 71.668 kg See dictation under HPI please Results Result Diagrams: 12/26/18 06:30 Assessment and Plan Assessment: 39 week intrauterine , advanced cervical dilatation, mild cholestasis o f . Thin meconium fluid. Plan: Oxytocin per hospital protocol. Close maternal and surveillance. Epidural has been requested at this time. Anticipate normal spontaneous vaginal delivery. Time with Patient: Less than 30
[2018-12-26] MEDS ORDERED: fentaNYL (PF) 50 MCG/ML 5 ML AMP ONE (09:50)
[2018-12-26] MEDS ORDERED: ROPIVACAINE 5MG/ML 20ML VIAL ONE (09:50)
[2018-12-26] MEDS ORDERED: SODIUM CHLORIDE 0.9% 100 ML BAG ONE (09:50)
--- NOTE | 2018-12-26 11:55 | P.PROBDLV ---
Vaginal Delivery Note - . Vaginal Delivery Note: This is a 28-year-old white female 3 para 2002 EDC 01/02/2019 at 39 weeks gestation. Patient presented this morning for induction with advanced cervical dilatation and history of cholestasis of . She was 6 cm dilated as checked in the office yesterday. Group B strep cultures are negative. Rubella status immune. Blood type A positive. Please see my dictated history and physical for details. On admission artificial amniorrhexis revealed thin meconium-stained fluid. Oxytocin was started and titrated per hospital protocol. Epidural was placed per her request. She became completely dilated at 1127 hours and began the second stage of labor at that time. Perineal body is prepped and draped in usual sterile fashion. With excellent maternal expulsive efforts the infant's head delivered occiput anterior and he restituted accordingly. There is no nuchal cord noted. The right or anterior shoulder was gently delivered from underneath the pubic symphysis at which time the oropharynx, nasopharynx, and external nares were all bulb suctioned on the perineal body. Patient was officially delivered of a liveborn male infant at 1139 hours. Umbilical cord was doubly clamped and ligated. He was handed to waiting nurses for evaluation where scores of 8 and 9 at one and 5 minutes respectively were given. weight 8 lbs. 7 oz. or 3820 g. Placenta delivered spontaneously, it was inspected and noted to be intact, meconium stain ed with trivascular cord, at 1143 hours. This time the perineal body was redraped. Inspection of cervix, vagina, perineum, periurethral, and perirectal areas revealed a very small first-degree laceration at 6:00 through the mucosa only this is repaired with 3-0 Vicryl in a single [id number] suture. Fundus is firm and in the midline, symmetric and 18 week size upon completion of delivery. Placenta is sent to pathology for history of meconium fluid and cholestasis. Patient is requesting circumcision for her son. The family is allowed to begin the bonding experience in the LDR.
[2018-12-26] MEDS ORDERED: diphenhydrAMINE 50 MG CAP PO PRN (11:56)
[2018-12-26] MEDS ORDERED: HYDROCORTISONE 2.5% RECTAL CREAM 30 GM TUBE RECTAL PRN (11:56)
[2018-12-26] MEDS ORDERED: ACETAMINOPHEN TAB 325 MG TAB PO PRN (11:56)
[2018-12-26] MEDS ORDERED: SIMETHICONE 80 MG CHEWABLE PO PRN (11:56)
[2018-12-26] MEDS ORDERED: diphenhydrAMINE 50 MG/ML 1 ML VIAL IVP PRN ×2 (11:56)
[2018-12-26] MEDS ORDERED: ZOLPIDEM 5 MG TAB PO PRN (11:56)
[2018-12-26] MEDS ORDERED: LANOLIN CREAM 5 GM TUBE TOPICAL PRN (11:56)
[2018-12-26] MEDS ORDERED: WITCH HAZEL 1 EACH MED..PAD TOPICAL PRN (11:56)
[2018-12-26] MEDS ORDERED: diphenhydrAMINE ELIXIR 25 MG/10 ML CUP PO PRN (11:56)
[2018-12-26] MEDS ORDERED: diphenhydrAMINE 25 MG CAP PO PRN (11:56)
[2018-12-26] MEDS ORDERED: BENZOCAINE/MENTHOL SPRAY 1 GM/SPRAY AEROSOL TOPICAL PRN (11:56)
[2018-12-26] MEDS ORDERED: OXYTOCIN 20 UNITS/1000 ML NS 1,000 ML IV SCH (12:00)
[2018-12-26] MEDS: IBUPROFEN 600 MG TAB PO PRN (19:51)
[2018-12-26] MEDS: SENNOSIDES-DOCUSATE SODIUM 1 EACH TAB PO SCH (20:08)
[2018-12-27 08:09] VITALS: BP 114/85; PULSE 79; RESP 17; TEMP 98.3
[2018-12-27] MEDS: SENNOSIDES-DOCUSATE SODIUM 1 EACH TAB PO SCH (08:11)
--- NOTE | 2018-12-27 08:49 | P.DS ---
Providers Date of admission: 12/26/18 06:06 Expected date of discharge: 12/27/18 Attending physician: Tamiko Harrington Primary care physician: Stated None Hospital Course: This is a 28-year-old white female 3 para 2002 EDC 01/02/2019 at 39 weeks gestation. Patient presented for induction for cholestasis of and advanced cervical dilatation. was otherwise unremarkable, group B strep cultures negative, blood type A+, rubella status immune. Please see dictated history and physical for details. Oxytocin was started and epidural was placed per her request. She went on to swiftly deliver a liveborn male with scores of 8 and 9 at one and 5 minutes respectively. He weighed 8 lbs. 7 oz. or 3820 g. There was a small first-degree perineal laceration easily repaired and an estimated blood loss recorded of 250 mL's. Please see dictated delivery note for details. This morning the patient is doing well. She is voiding, ambulating and passing flatus without difficulty. Vital signs are stable and she is afebrile. Fundus is firm and in the midline, symmetric, 18 week size. Extremities are negative for edema. The patient's pruritus has greatly improved after delivery. circumcision has been performed. Patient is judged to be in very good condition for discharge home. She will use [id number] Advil or Aleve, or ibuprofen as needed for pain. She will continue taking her vitamin daily. I've asked her to call with any fevers shakes or chills, foul smelling or copious lochia, with the passage of large blood clots, with any pain not alleviated by [id number] products, or indeed with any concerns. We have reviewed options for contraception and we'll discuss this further in the office.+ Patient Condition at Discharge: Good Plan - Discharge Summary Discharge Rx Participant: No New Discharge Prescriptions: No Action Pnv No.95/Ferrous Fum/Folic AC [ Multivitamin Tablet] 1 each PO QAM #60 tablet Discharge Medication List Pnv No.95/Ferrous Fum/Folic AC [ Multivitamin Tablet] 1 each PO QAM #60 tablet 05/13/18 [Rx] Follow up Appointment(s)/Referral(s): Tamiko Harrington MD [STAFF PHYSICIAN] - 6 Weeks Discharge Disposition: HOME SELF-CARE
[2018-12-27] MEDS: IBUPROFEN 600 MG TAB PO PRN (10:21)
== END 2018-12-27 13:00 | disposition home or self-care (01) | DRG 805 ==
LOC: 4FBP 06:06
PROVIDERS: ADMIT Obstetrics & Gynecology; ATTEND Obstetrics & Gynecology
PROC: 10E0XZZ Delivery of Products of Conception, External Approach (ICD-10-PCS; principal; 2018-12-26)
PROC: 0HQ9XZZ Repair Perineum Skin, External Approach (ICD-10-PCS; 2018-12-26)
PROC: 10907ZC Drainage of Amniotic Fluid, Therapeutic from Products of Conception, Via Natural or Artificial Opening (ICD-10-PCS; 2018-12-26)
PROC: 3E033VJ Introduction of Other Hormone into Peripheral Vein, Percutaneous Approach (ICD-10-PCS; 2018-12-26)
PROC: 00HU33Z Insertion of Infusion Device into Spinal Canal, Percutaneous Approach (ICD-10-PCS; 2018-12-26)
PROC: 3E0R3BZ Introduction of Anesthetic Agent into Spinal Canal, Percutaneous Approach (ICD-10-PCS; 2018-12-26)
DX: O26.62 Liver and biliary tract disorders in childbirth (principal); K83.1 Obstruction of bile duct; Z37.0 Single live birth; O70.0 First degree perineal laceration during delivery; O77.0 Labor and delivery complicated by meconium in amniotic fluid; Z3A.39 39 weeks gestation of pregnancy; Z87.891 Personal history of nicotine dependence; Z83.3 Family history of diabetes mellitus; Z82.49 Family history of ischemic heart disease and other diseases of the circulatory system; Z91.030 Bee allergy status
CPT/HCPCS: 85025; 86850; 86900; 86901; 88307

== ENCOUNTER 2020-02-27 14:00 | Emergency (ER) | payer OTHER ==
[2020-02-27 14:03] VITALS: TEMP 98.6
[2020-02-27] MEDS ORDERED: ARTIFICIAL TEARS-HYPROMELLOSE DROPS 15 ML BTL LEFT EYE STA (14:18)
--- NOTE | 2020-02-27 14:21 | ED ---
General Adult HPI - General Chief complaint: Neuro Symptoms/Deficit Stated complaint: L Side Face Numbness Time Seen by Provider: 02/27/20 14:05 Source: patient Mode of arrival: ambulatory Limitations: no limitations - History of Present Illness Initial comments: Dictation was produced using [employer] dictation software. please excuse any grammatical, word or spelling errors. This patient was cared for during a federal and state declared state of emergency secondary to Covid 19 Chief Complaint: 29-year-old female presents with left-sided facial weakness History of Present Illness: 29-year-old female she has no past medical history. She states that her symptoms began about 4 days ago. Initially she began complaining of paresthesias and numbness to her left face. Patient states that her symptoms have slightly progressed. She also complains of no taste sensation to her left lateral tongue. This morning she was with family when she was noted by mother to have left-sided facial weakness. She looked in the mirror and noted that her left side of her face wasn't smiling. Patient also complains of weakness of left eye tearing. She also has paresthesias to the whole left upper extremity. Patient has no other neuro complaints. States that she had strep throat approximately one month ago. The ROS documented in this emergency department record has been reviewed and confirmed by me. Those systems with pertinent positive or negative responses have been documented in the HPI. All other systems are other negative and/or noncontributory. PHYSICAL EXAM: General Impression: Alert and oriented x3, not in acute distress HEENT: Normocephalic atraumatic, extra-ocular movements intact, pupils equal and reactive to light bilaterally, mucous membranes moist. Cardiovascular: Heart regular rate and rhythm Chest: Able to complete full sentences, no retractions, no tachypnea Abdomen: abdomen soft, non-tender, non-distended, no organomegaly Musculoskeletal: Pulses present and equal in all extremities, no peripheral vin ma Motor: no focal deficits noted Neurological: Left-sided facial droop with smiling, weak left periorbital muscles. Her seizures to the left forehead and left cheek. No extremity drift. She does have sensory changes to the left upper extremity when compared to the right. She is not aphasic and not ataxic. Skin: Intact with no visualized rashes Psych: Normal affect and mood ED course: 29-year-old female presents with clinical presentation of 4 days of neurologic deficits. All signs upon arrival shows heart rate of 12 cumbersome vital signs within acceptable limits. 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 She is on physical examination that her symptoms of paresthesias to the left arm are subjective. Nonetheless, given that patient facial nerve symptoms with CVA features we will pursue CVA workup.Chest x-ray is unremarkable. Computed tomography scan of the brain shows no acute processes. Laboratory evaluation obtained. CBC, coag panel, metabolic panel is unremarkable. Beta hCG is negative. Neurology was consulted and will evaluate patient at bedside. At this point patient symptoms are the for Thompson palsy however with the atypical feature of the left upper extremity. Patient given artificial tears. She had her left eye taped shut. Given acyclovir and prednisone. Neurology was contacted. Dr. Ballard did evaluate patient at bedside. His recommendations was to obtain MRI. MRI is abnormal patient can be discharged. If for some reason the MRI was abnormal patient would require transfer to higher level facility and because we do not have neurology coverage over the weekend. Brain MRI shows no acute processes. There is mild sinus disease. Results were discussed with patient. She is well-appearing at bedside. Discussed the plans of appropriate eye care. She is told to use artificial tears, erythromycin ointment at night to take that showed with protective covering. Given outpatient follow-up with ENT if her symptoms do not resolve. EKG interpretation: Ventricular rate 90, normal sinus rhythm,. 152, QRS 74, QTC 4:30. No CT prolongation, no QTC prolongation, no ST or T-wave changes noted. . Overall, this EKG is unremarkable - Related Data Previous Rx's Medication Instructions Recorded Artificial Tears-Hypromellose 1 drops LEFT EYE TID #1 bottle 02/27/20 [Artificial Tear Drops] Erythromycin Ophth Oint [Romycin 1 applic LEFT EYE DAILY #1 bottle 02/27/20 Ophth Oint] predniSONE [Deltasone] 60 mg PO DAILY 7 Days #21 tab 02/27/20 valACYclovir HCL 1,000 mg PO TID 7 Days #21 tab 02/27/20 Allergies Allergy/AdvReac Type Severity Reaction Status Date / Time venom-honey bee Allergy Swelling Verified 02/27/20 18:28 [bee venom (honey bee)] Review of Systems ROS Statement: Those systems with pertinent positive or pertinent negative responses have been documented in the HPI. ROS Other: All systems not noted in ROS Statement are negative. 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 Past Anesthesia/Blood Transfusion Reactions: No Reported Reaction Past Psychological History: No Psychological Hx Reported Smoking Status: Never smoker Past Alcohol Use History: Occasional Past Drug Use History: None Reported - Past Family History Father Family Medical History: Diabetes Mellitus General Exam Limitations: no limitations Course Vital Signs 02/27/20 02/27/20 02/27/20 14:02 16:38 18:03 Temperature 98.6 F Pulse Rate 102 H 89 80 Respiratory 16 20 16 Rate Blood Pressure 119/82 130/89 115/82 O2 Sat by Pulse 98 100 98 Oximetry Medical Decision Making - Lab Data Result diagrams: 02/27/20 14:26 02/27/20 14:26 Lab Results 02/27/20 02/27/20 02/27/20 Range/Units 14:26 14:26 14:26 WBC 7.4 (3.8-10.6) k/uL RBC 5.34 (3.80-5.40) m/uL Hgb 14.5 (11.4-16.0) gm/dL Hct 44.2 (34.0-46.0) % MCV 82.7 (80.0-100.0) fL MCH 27.2 (25.0-35.0) pg MCHC 32.9 (31.0-37.0) g/dL RDW 12.2 (11.5-15.5) % Plt Count 216 (150-450) k/uL Neutrophils % 59 % Lymphocytes % 31 % Monocytes % 5 % Eosinophils % 2 % Basophils % 1 % Neutrophils # 4.4 (1.3-7.7) k/uL Lymphocytes # 2.3 (1.0-4.8) k/uL Monocytes # 0.4 (0-1.0) k/uL Eosinophils # 0.2 (0-0.7) k/uL Basophils # 0.1 (0-0.2) k/uL PT 10.1 (9.0-12.0) sec INR 1.0 (<1.2) APTT 26.8 (22.0-30.0) sec Sodium 140 (137-145) mmol/L Potassium 4.2 (3.5-5.1) mmol/L Chloride 105 (98-107) mmol/L Carbon Dioxide 29 (22-30) mmol/L Anion Gap 6 mmol/L BUN 16 (7-17) mg/dL Creatinine 0.86 (0.52-1.04) mg/dL Est GFR (CKD-EPI)AfAm >90 (>60 ml/min/1.73 sqM) Est GFR (CKD-EPI)NonAf >90 (>60 ml/min/1.73 sqM) Glucose 101 H (74-99) mg/dL Calcium 9.6 (8.4-10.2) mg/dL Urine HCG, Qual (Not Detectd) Urine Opiates Screen (NotDetected) Ur Oxycodone Screen (NotDetected) Urine Methadone Screen (NotDetected) Ur Propoxyphene Screen (NotDetected) Ur Barbiturates Screen (NotDetected) U Tricyclic Antidepress (NotDetected) Ur Phencyclidine Scrn (NotDetected) Ur Amphetamines Screen (NotDetected) U Methamphetamines Scrn (NotDetected) U Benzodiazepines Scrn (NotDetected) Urine Cocaine Screen (NotDetected) U Marijuana (THC) Screen (NotDetected) 02/27/20 02/27/20 Range/Units 14:28 14:28 WBC (3.8-10.6) k/uL RBC (3.80-5.40) m/uL Hgb (11.4-16.0) gm/dL Hct (34.0-46.0) % MCV (80.0-100.0) fL MCH (25.0-35.0) pg MCHC (31.0-37.0) g/dL RDW (11.5-15.5) % Plt Count (150-450) k/uL Neutrophils % % Lymphocytes % % Monocytes % % Eosinophils % % Basophils % % Neutrophils # (1.3-7.7) k/uL Lymphocytes # (1.0-4.8) k/uL Monocytes # (0-1.0) k/uL Eosinophils # (0-0.7) k/uL Basophils # (0-0.2) k/uL PT (9.0-12.0) sec INR (<1.2) APTT (22.0-30.0) sec Sodium (137-145) mmol/L Potassium (3.5-5.1) mmol/L Chloride (98-107) mmol/L Carbon Dioxide (22-30) mmol/L Anion Gap mmol/L BUN (7-17) mg/dL Creatinine (0.52-1.04) mg/dL Est GFR (CKD-EPI)AfAm (>60 ml/min/1.73 sqM) Est GFR (CKD-EPI)NonAf (>60 ml/min/1.73 sqM) Glucose (74-99) mg/dL Calcium (8.4-10.2) mg/dL Urine HCG, Qual Not Detected (Not Detectd) Urine Opiates Screen Not Detected (NotDetected) Ur Oxycodone Screen Not Detected (NotDetected) Urine Methadone Screen Not Detected (NotDetected) Ur Propoxyphene Screen Not Detected (NotDetected) Ur Barbiturates Screen Not Detected (NotDetected) U Tricyclic Antidepress Not Detected (NotDetected) Ur Phencyclidine Scrn Not Detected (NotDetected) Ur Amphetamines Screen Not Detected (NotDetected) U Methamphetamines Scrn Not Detected (NotDetected) U Benzodiazepines Scrn Not Detected (NotDetected) Urine Cocaine Screen Not Detected (NotDetected) U Marijuana (THC) Screen Not Detected (NotDetected) Disposition Clinical Impression: Thompson palsy Disposition: HOME SELF-CARE Condition: Good Instructions (If sedation given, give patient instructions): Thompson Palsy (ED) Prescriptions: Artificial Tears-Hypromellose [Artificial Tear Drops] 1 drops LEFT EYE TID #1 bottle predniSONE [Deltasone] 60 mg PO DAILY 7 Days #21 tab Erythromycin Ophth Oint [Romycin Ophth Oint] 1 applic LEFT EYE DAILY #1 bottle valACYclovir HCL 1,000 mg PO TID 7 Days #21 tab Is patient prescribed a controlled substance at d/c from ED?: No Referrals: Arabella Byrnes MD [Primary Care Provider] - 1-2 days Parveen Matute MD [STAFF PHYSICIAN] - 1-2 days Time of Disposition: 18:42
[2020-02-27] MEDS ORDERED: valACYclovir 500 MG TAB PO STA (14:39)
[2020-02-27 14:57] LABS: African American GFR (CKD) >90 (>60 ml/min/1.73 sqM); Anion Gap 6 mmol/L; Blood Urea Nitrogen 16 mg/dL (7-17); Calcium 9.6 mg/dL (8.4-10.2); Carbon Dioxide 29 mmol/L (22-30); Chloride 105 mmol/L (98-107); Glucose 101 mg/dL (74-99); Non-African American GFR(CKD) >90 (>60 ml/min/1.73 sqM); Potassium 4.2 mmol/L (3.5-5.1); Sodium 140 mmol/L (137-145)
[2020-02-27 15:01] LABS: Partial Thromboplastin Time 26.8 sec (22.0-30.0); Prothrombin Time 10.1 sec (9.0-12.0)
[2020-02-27 15:12] LABS: Basophils # (A) 0.1 k/uL (0-0.2); Basophils % (A) 1 %; Eosinophils # (A) 0.2 k/uL (0-0.7); Eosinophils % (A) 2 %; HCT 44.2 % (34.0-46.0); HGB 14.5 gm/dL (11.4-16.0); Lymphocytes # (A) 2.3 k/uL (1.0-4.8); Lymphocytes % (A) 31 %; MCH 27.2 pg (25.0-35.0); MCHC 32.9 g/dL (31.0-37.0); MCV 82.7 fL (80.0-100.0); Monocytes # (A) 0.4 k/uL (0-1.0); Monocytes % (A) 5 %; Neutrophils # (A) 4.4 k/uL (1.3-7.7); Neutrophils % (A) 59 %; Platelet Count 216 k/uL (150-450); RBC 5.34 m/uL (3.80-5.40); RDW 12.2 % (11.5-15.5); WBC 7.4 k/uL (3.8-10.6)
--- NOTE | 2020-02-27 15:19 | CT ---
EXAMINATION TYPE: CT brain wo con DATE OF EXAM: 02/27/2020 HISTORY: Left side facial numbness CT DLP: 1123.4 mGycm. Automated Exposure Control for Dose Reduction was Utilized. TECHNIQUE: CT scan of the head is performed without contrast. COMPARISON: None FINDINGS: There is no acute intracranial hemorrhage, midline shift, or mass effect identified. Brain parenchyma appears normal. The ventricles, sulci, and cisterns are normal in size and configuration. No extra-axial fluid collection. Bones and extracranial soft tissues are intact. The globes are gross ly symmetric. Visualized sinuses and mastoid air cells are clear. IMPRESSION: No acute intracranial hemorrhage, midline shift, or mass effect.
[2020-02-27 15:20] LABS: Amphetamine Screen,Urine Not Detected (NotDetected); Barbiturate Screen,Urine Not Detected (NotDetected); Benzodiazepines Screen,Urine Not Detected (NotDetected); Cocaine Screen,Urine Not Detected (NotDetected); Methadone Screen, Urine Not Detected (NotDetected); Opiate Screen,Urine Not Detected (NotDetected); Oxycodone Screen, Urine Not Detected (NotDetected); Phencyclidine Screen,Urine Not Detected (NotDetected); Tricyclic Antidepressant,Urine Not Detected (NotDetected); Urn Cannabinoid Scrn Not Detected (NotDetected)
--- NOTE | 2020-02-27 15:43 | XR ---
EXAMINATION TYPE: XR chest 1V portable DATE OF EXAM: 02/27/2020 COMPARISON: None INDICATION: Neuro deficit left facial numbness and drooping TECHNIQUE: Single frontal view of the chest is obtained. FINDINGS: The heart size is normal. The pulmonary vasculature is normal. The lungs are clear. IMPRESSION: 1. No acute pulmonary process.
[2020-02-27] MEDS ORDERED: predniSONE 20 MG TAB PO STA (15:46)
[2020-02-27 18:04] VITALS: BP 115/82; PULSE 80; RESP 16
--- NOTE | 2020-02-27 18:31 | MR ---
MRI brain without contrast history: Neuro deficit Multiplanar multisequence imaging obtained and correlated to CT scan dated 02/27/2020 There is no restricted diffusion. There is no hemorrhage or hydrocephalus. The corpus callosum, pitui tary, cervical medullary junction, cerebellopontine angles are normal. The orbits show symmetric appe arance. Brain signal is normal. There are normal vascular flow voids. Some mucoperiosteal thickening is present in the maxillary sinus on the right, ethmoid air cells show some inflammatory change. IMPRESSION: Normal brain MRI. Mild sinus disease.
--- NOTE | 2020-02-27 18:40 | P.CNNES ---
History of Present Illness Consult date: 02/27/20 Requesting physician: Enrico Leal Reason for Consult: Neuro deficits History of Present Illness: Patient is a 29-year-old female who noticed numbness of the left side of the tongue 4 days ago. She could not taste anything on the left side of the tongue. Today she noticed that when she was laughing, her face was crooked. She also noticed numbness of left side of the face. She also had numbness of left arm, but not the leg. She was noticing excessive watering of the left eye. Denies any changes in the hearing, or pain in the ear. In the last 1 week she has been having headache, pointing to the top of the head. Patient denies any previous history of focal numbness or tingling, vertigo or optic neuritis. No history of head or neck trauma. No problem with the vision no focal weakness in the arms or legs. Her balance is fine. No family history of MS. Patient denies hypertension, diabetes, any tobacco or alcohol use. Review of Systems As mentioned above in detail. All other review of systems completely unremarkable. 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 Past Anesthesia/Blood Transfusion Reactions: No Reported Reaction Past Psychological History: No Psychological Hx Reported Smoking Status: Never smoker Past Alcohol Use History: Occasional Past Drug Use History: None Reported - Past Family History Father Family Medical History: Diabetes Mellitus Medications and Allergies Home Medications Medication Instructions Recorded Confirmed Type Pnv No.95/Ferrous Fum/Folic AC 1 each PO QAM #60 tablet 05/13/18 12/26/18 Rx [ Multivitamin Tablet] Allergies Allergy/AdvReac Type Severity Reaction Status Date / Time venom-honey bee Allergy Swelling Verified 02/27/20 14:01 [bee venom (honey bee)] Physical Examination - Vital Signs Vital Signs: Vital Signs Temp Pulse Resp BP Pulse Ox 02/27/20 18:03 80 16 115/82 98 02/27/20 16:38 89 20 130/89 100 02/27/20 14:02 98.6 F 102 H 16 119/82 98 Intake and Output 02/27/20 02/27/20 02/27/20 06:59 14:59 22:59 Other: Weight 63.503 kg On examination patient is a young female, in no acute distress. Patient is alert and awake oriented to time place and person. Speech and language functions are normal. Attention and concentration fund of knowledge is adequate. On cranial nerve examination pupils are round and reactive to light, visual vaughan are full on confrontation. Extraocular muscles are intact with no nystagmus. She has left facial weakness, which is slightly more prominent in the left lower, as compared to the left upper part. She has definite weakness of the left eye closure. Patient has decreased sensations for touch and pinprick in the left side of the face as compared to the right. Tongue protrudes the midline. Palatal elevation and sensation normal. Her hearing and shoulder shrug normal. On muscle strength testing there is no pronator drift and the strength is normal in arms and legs distally and proximally. Deep ten don reflexes are 2+ all over and plantars downgoing. Sensory touch is decreased in the left arm as compared to the right. The sensations are equal in the lower extremities. No ataxia for [id number] testing. Tone and bulk of muscles normal. Gait deferred. There is no carotid bruit, S1 and S2 audible cup. Chest is clear. Abdomen soft nontender. No peripheral edema. Patient is having excessive lacrimation of the left eye. 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 Patient however has several atypical features including headache involving top of the head (not retroauricular area which typically occurs with Thompson's palsy), and numbness of left side of the face and left arm. Rule out demyelinating disease. Plan: * MRI of brain without contrast to rule out CVA/demyelinating disease. * If MRI is normal, then would recommend prednisone 60 mg daily for 7 days and then decrease by 10 mg daily until off. * Valtrex 1 g 3 times a day for 7 days * Follow up with neurology as outpatient in 1-2 weeks. Addendum: MRI reviewed, appears normal. No evidence of acute stroke or demyelinating disease. Neurologically clear for discharge.
== END 2020-02-27 18:52 | disposition home or self-care (01) ==
LOC: EC 14:00
DX: G51.0 Bell's palsy (principal); R29.898 Other symptoms and signs involving the musculoskeletal system; Z91.030 Bee allergy status
CPT/HCPCS: 36415; 93005; 80048; 85025; 85610; 85730; 81025; 80306; 71045; 70450; 70551; 99285; J7512

== ENCOUNTER 2023-02-02 20:07 | Emergency (ER) | payer OTHER ==
[2023-02-02] MEDS ORDERED: KETOROLAC 15 MG/ML 1 ML VIAL IVP STA (20:52)
[2023-02-02] MEDS ORDERED: SODIUM CHLORIDE 0.9% 1,000 ML IV STA (20:52)
[2023-02-02 21:38] LABS: Appearance,Urine Cloudy (Clear); Bilirubin,Urine Negative (Negative); Blood,Urine Negative (Negative); Color,Urine Yellow; Glucose,Urine (UA) Negative (Negative); Ketones,Urine Negative (Negative); Leukocyte Esterase,Urine Large (Negative); Mucus,Urine Few /hpf; Nitrite,Urine Negative (Negative); Protein,Urine Negative (Negative); RBC,Urine 1 /hpf (0-5); Specific Gravity,Urine 1.021 (1.001-1.035); Squamous Epithelial Cell,Urine 11 /hpf (0-4); Urobilinogen,Urine <2.0 mg/dL (<2.0); WBC,Urine 2 /hpf (0-5)
[2023-02-02 21:44] LABS: Basophils % (A) 0 %; Eosinophils # (A) 0.2 k/uL (0-0.7); Eosinophils % (A) 2 %; HCT 36.9 % (34.0-46.0); HGB 12.2 gm/dL (11.4-16.0); Lymphocytes # (A) 1.8 k/uL (1.0-4.8); Lymphocytes % (A) 19 %; MCHC 32.9 g/dL (31.0-37.0); MCV 75.8 fL (80.0-100.0); Mean Platelet Volume 9.8; Microcytosis Slight; Monocytes # (A) 0.4 k/uL (0-1.0); Monocytes % (A) 5 %; Neutrophils # (A) 6.9 k/uL (1.3-7.7); Neutrophils % (A) 72 %; Platelet Count 201 k/uL (150-450); RBC 4.87 m/uL (3.80-5.40); RDW 14.5 % (11.5-15.5); WBC 9.5 k/uL (3.8-10.6)
[2023-02-02 22:06] LABS: ALT 120 U/L (4-34); AST 98 U/L (14-36); African American GFR (CKD) >90 (>60 ml/min/1.73 sqM); Albumin 4.1 g/dL (3.5-5.0); Alkaline Phosphatase 141 U/L (38-126); Anion Gap 7 mmol/L; Blood Urea Nitrogen 15 mg/dL (7-17); Carbon Dioxide 27 mmol/L (22-30); Chloride 103 mmol/L (98-107); Glucose 105 mg/dL (74-99); Lipase 75 U/L (23-300); Non-African American GFR(CKD) >90 (>60 ml/min/1.73 sqM); Potassium 3.9 mmol/L (3.5-5.1); Sodium 137 mmol/L (137-145); Total Bilirubin 0.4 mg/dL (0.2-1.3); Total Protein 7.5 g/dL (6.3-8.2)
--- NOTE | 2023-02-02 22:14 | US ---
EXAMINATION TYPE: US abdomen limited DATE OF EXAM: 02/02/2023 COMPARISON: NONE CLINICAL INDICATION: Female, 32 years old with history of epigastric pain; abdominal pain, back pain TECHNIQUE: Multiple sonographic images of the right upper quadrant are obtained. FINDINGS: EXAM MEASUREMENTS: Liver Length: 16.0 cm Gallbladder Wall: 0.2 cm CBD: 0.4 cm Right Kidney: 10.4 x 4.3 x 4.6 cm Pancreas: Tail obscured by overlying bowel gas Liver: wnl Gallbladder: filled with stones Evidence for sonographic Martin's sign: no CBD: wnl Right Kidney: no evidence of hydronephrosis , renal pole. Occasionally associated with medullary spo nge kidney. IMPRESSION: Cholelithiasis.
--- NOTE | 2023-02-02 22:43 | ED ---
Abdominal Pain HPI - General Chief Complaint: Abdominal Pain Stated Complaint: Abd & Back Pain Time Seen by Provider: 02/02/23 20:36 Source: patient Mode of arrival: ambulatory Limitations: no limitations - History of Present Illness Initial Comments: Patient is a 32-year-old female who presents the emergency department for abdominal pain. The pain started suddenly shortly after eating a jose l cheese steak. Pain was the right upper abdomen with radiation to the back. It lasted 20 minutes and is very minimal now. Patient states she has never had this pain before. No fever, chills, nausea, vomiting. No urinary symptoms or change in bowel pattern. No history of abdominal surgery. - Related Data Home Medications Medication Instructions Recorded Confirmed Acetaminophen Tab [Tylenol] 650 mg PO Q6H PRN 08/16/22 08/16/22 Ibuprofen [Motrin Ib] 600 mg PO Q6H PRN 08/16/22 08/16/22 Previous Rx's Medication Instructions Recorded Ibuprofen [Motrin] 600 mg PO Q6HR PRN #30 tab 02/02/23 Allergies Allergy/AdvReac Type Severity Reaction Status Date / Time venom-honey bee Allergy Swelling Verified 02/02/23 20:29 [bee venom (honey bee)] Review of Systems ROS Statement: Those systems with pertinent positive or pertinent negative responses have been documented in the HPI. ROS Other: All systems not noted in ROS Statement are negative. 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 Absent: scleral icterus, conjunctival injection, periorbital swelling Respiratory exam: Present: normal lung sounds bilaterally. Absent: respiratory distress, wheezes, rales, rhonchi, stridor Cardiovascular Exam: Present: regular rate, normal rhythm, normal heart sounds. Absent: systolic murmur, diastolic murmur, rubs, gallop, clicks GI/Abdominal exam: Present: soft, normal bowel sounds. Absent: distended, tenderness, guarding, rebound, rigid Neurological exam: Present: alert Psychiatric exam: Present: normal affect, normal mood Skin exam: Present: warm, dry, intact, normal color. Absent: rash Course Vital Signs 02/02/23 02/02/23 20:25 22:52 Temperature 98.4 F 98 F Pulse Rate 98 77 Respiratory 20 16 Rate Blood Pressure 124/89 125/89 O2 Sat by Pulse 99 99 Oximetry Medical Decision Making - Medical Decision Making Was pt. sent in by a medical professional or institution (, PA, SPECIAL PROGRAMS DIRECTOR, urgent care, hospital, or fpc...) When possible be specific @ -No Did you speak to anyone other than the patient for history (EMS, parent, family, police, friend...)? What history was obtained from this source @ -No Did you review nursing and triage notes (agree or disagree)? Why? @ -I reviewed and agree with nursing and triage notes Were old charts reviewed (outside hosp., previous admission, EMS record, old EKG, old radiological studies, urgent care reports/EKG's, fpc records)? Report findings @ -No old charts were reviewed Differential Diagnosis (chest pain, altered mental status, abdominal pain women, abdominal pain men, vaginal bleeding, weakness, fever, dyspnea, syncope, headache, dizziness, GI bleed, back pain, seizure, CVA, palpatations, mental health)? @ -Differential Abdominal Pain Women: Appendicitis, Cholecystitis, diverticulosis, ischemic bowel, pancreatitis, hepatitis, UTI, gastroenteritis, AAA, incarcerated hernia, bowel obstruction, constipation, inflammatory bowel, hepatitis, peptic ulcer disease, splenic infarction, perforated viscus, vulvitis, ovarian torsion, PID, kidney stone, placenta abruption, this is not meant to be an all-inclusive list EKG interpreted by me (3pts min.). @ -As above X-rays interpreted by me (1pt min.). @ -None done CT interpreted by me (1pt min.). @ -None done U/S interpreted by me (1pt. min.). @Numerous gallstones no evidence of cholecystitis or choledocholithiasis What testing was considered but not performed or refused? (CT, X-rays, U/S, labs)? Why? @ -None What meds were considered but not given or refused? Why? @ -None Did you discuss the management of the patient with other professionals (professionals i.e. , PA, SPECIAL PROGRAMS DIRECTOR, lab, RT, psych nurse, high school social studies teacher, torpedo specialist, teacher, policy officer, pillowcase folder)? Give summary @ -No Was smoking cessation discussed for >3mins.? @ -No Was critical care preformed (if so, how long)? @ -No Were there social determinants of health that impacted care today? How? (Homelessness, low income, unemployed, alcoholism, drug addiction, transportation, low edu. Level, literacy, decrease access to med. care, halfway, rehab)? @ -No Was there de-escalation of care discussed even if they declined (Discuss DNR or withdrawal of care, Hospice)? DNR status @ -No What co-morbidities impacted this encounter? (DM, HTN, Smoking, COPD, CAD, Cancer, CVA, ARF, Chemo, Hep., AIDS, mental health diagnosis, sleep apnea, morbid obesity)? @ -None Was patient admitted / discharged? Hospital course, mention meds given and route, prescriptions, significant lab abnormalities, going to OR and other pertinent info. @ -Patient presenting after episode of right upper quadrant pain. Ultrasound obtained interpreted by myself showing multiple gallstones no evidence of cholecystitis or choledocholithiasis. Patient does have mild elevation of liver enzymes, AST at 98, ALT at 120, alk phos at 141. Patient observed closely in the emergency department. She continued to have minimal pain. The abdomen is soft and nontender. No fever, nausea, vomiting. No leukocytosis. Results discussed with patient. Given circumstances it is appropriate to manage this outpatient. Patient is referred to GI specialist. We discussed return parameters and triggers in detail. Undiagnosed new problem with uncertain prognosis? @ -No Drug Therapy requiring intensive monitoring for toxicity (Heparin, Nitro, Insulin, Cardizem)? @ -No Were any procedures done? @ -No Diagnosis/symptom? @ -Cholelithiasis Acute, or Chronic, or Acute on Chronic? @ -Acute Uncomplicated (without systemic symptoms) or Complicated (systemic symptoms)? @ -Uncomplicated Side effects of treatment? @ -No Exacerbation, Progression, or Severe Exacerbation? @ -No Poses a threat to life or bodily function? How? (Chest pain, USA, ID, pneumonia, PE, COPD, DKA, ARF, appy, cholecystitis, CVA, Diverticulitis, Homicidal, [place] icidal, threat to staff... and all critical care pts) @ -No Dr. Mckeon is my attending - Lab Data Result diagrams: 02/02/23 21:00 02/02/23 21:00 Lab Results 02/02/23 02/02/23 02/02/23 Range/Units 21:00 21:00 21:00 WBC 9.5 (3.8-10.6) k/uL RBC 4.87 (3.80-5.40) m/uL Hgb 12.2 (11.4-16.0) gm/dL Hct 36.9 (34.0-46.0) % MCV 75.8 L (80.0-100.0) fL MCH 25.0 (25.0-35.0) pg MCHC 32.9 (31.0-37.0) g/dL RDW 14.5 (11.5-15.5) % Plt Count 201 (150-450) k/uL MPV 9.8 Neutrophils % 72 % Lymphocytes % 19 % Monocytes % 5 % Eosinophils % 2 % Basophils % 0 % Neutrophils # 6.9 (1.3-7.7) k/uL Lymphocytes # 1.8 (1.0-4.8) k/uL Monocytes # 0.4 (0-1.0) k/uL Eosinophils # 0.2 (0-0.7) k/uL Basophils # 0.0 (0-0.2) k/uL Microcytosis Slight Sodium 137 (137-145) mmol/L Potassium 3.9 (3.5-5.1) mmol/L Chloride 103 (98-107) mmol/L Carbon Dioxide 27 (22-30) mmol/L Anion Gap 7 mmol/L BUN 15 (7-17) mg/dL Creatinine 0.80 (0.52-1.04) mg/dL Est GFR (CKD-EPI)AfAm >90 (>60 ml/min/1.73 sqM) Est GFR (CKD-EPI)NonAf >90 (>60 ml/min/1.73 sqM) Glucose 105 H (74-99) mg/dL Plasma Lactic Acid Dirk 0.9 (0.7-2.0) mmol/L Calcium 9.0 (8.4-10.2) mg/dL Total Bilirubin 0.4 (0.2-1.3) mg/dL AST 98 H (14-36) U/L ALT 120 H (4-34) U/L Alkaline Phosphatase 141 H (38-126) U/L Total Protein 7.5 (6.3-8.2) g/dL Albumin 4.1 (3.5-5.0) g/dL Lipase 75 (23-300) U/L Urine Color Urine Appearance (Clear) Urine pH (5.0-8.0) Ur Specific [place] (1.001-1.035) Urine Protein (Negative) Urine Glucose (UA) (Negative) Urine Ketones (Negative) Urine Blood (Negative) Urine Nitrite (Negative) Urine Bilirubin (Negative) Urine Urobilinogen (<2.0) mg/dL Ur Leukocyte Esterase (Negative) Urine RBC (0-5) /hpf Urine WBC (0-5) /hpf Ur Squamous Epith Cells (0-4) /hpf Urine Mucus (None) /hpf Urine HCG, Qual (Not Detectd) 02/02/23 02/02/23 Range/Units 21:30 21:30 WBC (3.8-10.6) k/uL RBC (3.80-5.40) m/uL Hgb (11.4-16.0) gm/dL Hct (34.0-46.0) % MCV (80.0-100.0) fL MCH (25.0-35.0) pg MCHC (31.0-37.0) g/dL RDW (11.5-15.5) % Plt Count (150-450) k/uL MPV Neutrophils % % Lymphocytes % % Monocytes % % Eosinophils % % Basophils % % Neutrophils # (1.3-7.7) k/uL Lymphocytes # (1.0-4.8) k/uL Monocytes # (0-1.0) k/uL Eosinophils # (0-0.7) k/uL Basophils # (0-0.2) k/uL Microcytosis Sodium (137-145) mmol/L Potassium (3.5-5.1) mmol/L Chloride (98-107) mmol/L Carbon Dioxide (22-30) mmol/L Anion Gap mmol/L BUN (7-17) mg/dL Creatinine (0.52-1.04) mg/dL Est GFR (CKD-EPI)AfAm (>60 ml/min/1.73 sqM) Est GFR (CKD-EPI)NonAf (>60 ml/min/1.73 sqM) Glucose (74-99) mg/dL Plasma Lactic Acid Dirk (0.7-2.0) mmol/L Calcium (8.4-10.2) mg/dL Total Bilirubin (0.2-1.3) mg/dL AST (14-36) U/L ALT (4-34) U/L Alkaline Phosphatase (38-126) U/L Total Protein (6.3-8.2) g/dL Albumin (3.5-5.0) g/dL Lipase (23-300) U/L Urine Color Yellow Urine Appearance Cloudy H (Clear) Urine pH 6.0 (5.0-8.0) Ur Specific [place] 1.021 (1.001-1.035) Urine Protein Negative (Negative) Urine Glucose (UA) Negative (Negative) Urine Ketones Negative (Negative) Urine Blood Negative (Negative) Urine Nitrite Negative (Negative) Urine Bilirubin Negative (Negative) Urine Urobilinogen <2.0 (<2.0) mg/dL Ur Leukocyte Esterase Large H (Negative) Urine RBC 1 (0-5) /hpf Urine WBC 2 (0-5) /hpf Ur Squamous Epith Cells 11 H (0-4) /hpf Urine Mucus Few H (None) /hpf Urine HCG, Qual Not Detected (Not Detectd) Disposition Clinical Impression: Cholelithiasis Disposition: HOME SELF-CARE Condition: Good Instructions (If sedation given, give patient instructions): Gallstones (ED) Additional Instructions: Take medication as directed. Please follow-up with GI specialist in 1-2 days. Return to the emergency department if you experience new, concerning, or worsening symptoms. Prescriptions: Ibuprofen [Motrin] 600 mg PO Q6HR PRN #30 tab PRN Reason: Pain Is patient prescribed a controlled substance at d/c from ED?: No Referrals: None,Stated [Primary Care Provider] - 1-2 days Alyce Griffin MD [STAFF PHYSICIAN] - 1-2 days
[2023-02-02 22:53] VITALS: BP 125/89; PULSE 77; RESP 16; TEMP 98
== END 2023-02-02 22:55 | disposition home or self-care (01) ==
LOC: EC 20:07
DX: K80.20 Calculus of gallbladder without cholecystitis without obstruction (principal); Z87.891 Personal history of nicotine dependence; Z91.030 Bee allergy status
CPT/HCPCS: 36415; 80053; 83605; 83690; 85025; 81001; 81025; 76705; 99284; 96374; 96361 ×2; J1885

== ENCOUNTER 2023-02-23 06:45 | Day surgery (SDC) | payer OTHER ==
[~2023-02-23 06:45] MED LIST: ACETAMINOPHEN TAB 500 MG TAB PO PRN; DEXAMETHASONE SOD PHOSPHATE 4 MG/ML 1 ML VIAL IV ONE; HEPARIN SODIUM,PORCINE/PF 5,000 UNIT/0.5 ML SYRINGE SQ PRN; LACTATED RINGERS 1,000 ML IV SCH; LIDOCAINE 1% (10MG/ML) FOR IV START INTRADERMA PRN; ONDANSETRON 4 MG/2 ML VIAL IVP ONE
[2023-02-23] MEDS ORDERED: MIDAZOLAM 2 MG/2 ML VIAL IV PRN (07:00)
[2023-02-23] MEDS ORDERED: HYDROmorphone 0.5 MG/0.5 ML SYRINGE IVP PRN (07:00)
[2023-02-23] MEDS ORDERED: ROCURONIUM 10 MG/ML (5 ML VIAL) IV ONE (07:58)
[2023-02-23] MEDS ORDERED: LIDOCAINE 2% INJ 20 MG/ML (2 ML VIAL) ONE (07:58)
[2023-02-23] MEDS ORDERED: GLYCOPYRROLATE 0.2 MG/ML 2 ML VIAL ONE (07:58)
[2023-02-23] MEDS ORDERED: KETOROLAC 15 MG/ML 1 ML VIAL ONE (07:58)
[2023-02-23] MEDS ORDERED: PROPOFOL 10 MG/ML 20 ML VIAL IV ONE (07:58)
[2023-02-23] MEDS ORDERED: HYDROmorphone (PF) 1 MG/ML ONE (07:58)
[2023-02-23] MEDS ORDERED: KETAMINE 10 MG/ML 20 ML VIAL ONE (07:58)
[2023-02-23] MEDS ORDERED: fentaNYL (PF) 50 MCG/ML 2 ML AMP ONE (07:58)
[2023-02-23] MEDS ORDERED: MIDAZOLAM 2 MG/2 ML VIAL ONE (07:58)
[2023-02-23] MEDS ORDERED: NEOSTIGMINE 1 MG/ML 10 ML VIAL ONE (07:58)
[2023-02-23] MEDS ORDERED: SUCCINYLCHOLINE CHLORIDE 200 MG/10 ML VIAL IV ONE (07:58)
[2023-02-23] MEDS ORDERED: LIDOCAINE 1%-EPI 1:100,000 50 ML VIAL SQ ONE (08:28)
--- NOTE | 2023-02-23 08:55 | P.OP ---
Date of Procedure: 02/23/23 Preoperative Diagnosis: Cholecystitis Cholelithiasis Postoperative Diagnosis: Cholecystitis Cholelithiasis Procedure(s) Performed: Laparoscopic cholecystectomy Anesthesia: ELLEN Surgeon: Prosper Anna Estimated Blood Loss (ml): 5 Pathology: other (Gallbladder) Condition: stable Disposition: PACU Description of Procedure: The patient was placed on the operating table. The patient received a general endotracheal tube anesthesia. The patients abdomen was prepped and draped in the usual sterile fashion. Through an infraumbilical stab incision, the fascia of the anterior abdominal wall was grasped with a pair of Kochers and then the Veress needle was placed in the peritoneal cavity. Position of the Veress needle was confirmed with positive drop test. The abdomen was then insufflated. After adequate insufflation, the 10 mm trocar was placed in the peritoneal cavity. Following this the laparoscope was placed in the peritoneal cavity. The patient was placed in the head-up, right side up position and then a 5 mm trocar was placed in the right lateral and right subcostal position under direct visualization. A 8 mm trocar was placed in the epigastric position. The gallbladder was grasped in the fundus and infundibulum. Traction on the gallbladder was placed in the lateral and the cephalad positions. The triangle of Calot was visualized.. The cystic duct was bluntly dissected until the union of the cystic duct and common bile duct wa s seen. A critical view of safety was achieved. The cystic duct was then divided and sealed with the Harmonic scissors. A PDS Endoloop was then placed throughout the cystic duct stump. The cystic artery divided and sealed with the Harmonic scissors. The gallbladder was then removed from the liver bed using Harmonic scissors. The gallbladder was then extracted through the epigastric port site. Operative field was checked for any bleeding spots and Harmonic scissors was used to coagulate the liver bed. The abdomen was irrigated. The trocars were removed. The skin was closed using interrupted 3-0 Vicryl suture. Dermabond dressing were applied. The patient tolerated the procedure well.
[2023-02-23 09:14] VITALS: TEMP 97.7
[2023-02-23 09:47] VITALS: RESP 16
[2023-02-23 15:26] VITALS: BP 122/71; PULSE 86
== END 2023-02-23 11:20 | disposition home or self-care (01) ==
LOC: OR 06:45
PROVIDERS: ATTEND Surgery
DX: K80.10 Calculus of gallbladder with chronic cholecystitis without obstruction (principal); Z87.891 Personal history of nicotine dependence; Z91.030 Bee allergy status
CPT/HCPCS: 81025; 88304; 47562; J2250; J0330; J1100; J2710; J0690; J2405; J3010; J1170; J1885; J2704; J1644; J2001

== ENCOUNTER → 2024-05-20 | Outpatient (CLI) | payer OTHER ==
--- NOTE | 2024-05-21 22:37 | US ---
EXAMINATION TYPE: US liver DATE OF EXAM: 05/20/2024 COMPARISON: 02/02/2023 CLINICAL INDICATION: Female, 33 years old with history of R74.01 ELEVATED ALT; Hx Cholecystectomy; Pa tient denies any other signs, symptoms, or relevant history TECHNIQUE: Grayscale and color Doppler imaging of the right upper quadrant was performed. FINDINGS: EXAM MEASUREMENTS: Liver Length: 14.6 cm Gallbladder Wall: Surgically absent cm CBD: 0.7 cm Right Kidney: 10.6 x 5.7 x 4.8 cm FIELD CLERK NOTES: Pancreas: wnl Liver: wnl Gallbladder: Surgically absent Evidence for sonographic Martin's sign: N/A CBD: wnl Right Kidney: ? Medullary sponge kidney appearance IMPRESSION: 1. No acute ultrasound abnormality. 2. Consider medullary sponge kidney based on appearance. [facility] Linda Cash, , 05/21/2024 10:35 PM
== END | disposition home or self-care (01) ==
LOC: RADUSWWP 07:37
PROVIDERS: ATTEND Family Medicine
DX: R74.01 Elevation of levels of liver transaminase levels (principal); Q61.5 Medullary cystic kidney; Z90.49 Acquired absence of other specified parts of digestive tract
CPT/HCPCS: 76705